=== PATIENT | female | born 1970 | race Caucasian/White ===

== ENCOUNTER 2018-01-21 21:41 | Emergency (ER) | payer BC ==
[2018-01-21] MEDS ORDERED: Zofran 4 MG/2 ML VIAL IV STA (21:56)
[2018-01-21] MEDS ORDERED: Sodium Chloride 0.9% 1000 ML 1,000 ML IV SCH (22:00)
[2018-01-21] MEDS ORDERED: Zofran 4 MG/2 ML VIAL ONE (22:02)
[2018-01-21] MEDS ORDERED: Sodium Chloride 0.9% 1000 ML 1,000 ML ONE (22:02)
--- NOTE | 2018-01-21 22:05 | ERPHSYRPT ---
- History of Present Illness Time Seen by Provider: 01/21/18 21:49 Source: patient Exam Limitations: no limitations Patient Subjective Stated Complaint: pt states she had wisdom teeth removed 6 days ago and has infection in her lt jaw. states she has had swelling and when using syringe to rinse, she heard a pop and foul fluid came out. states she has swelling, earache, and headache since Triage Nursing Assessment: pt alert and oriented, answers questions approp. pt alert and oriented. pt ambulatory with steady gait ntoed. respirations nonlabored with lungs cta. tenderness noted to lt jaw Physician History: Pt states, her left lower wisdom tooth was extracted 6 days ago. She was seen by her dentist twice since then, because of abscess in the socket, which was lavaged at the dentist office, and patient has been irrigating it as well. She states, she noticed foul tasting fluid leaking from the socket since yesterday, she was started on Clindamycin PO and also Z-arabella was given, but she did not star that one. She denies fever, severe headaches, vomiting, but nauseated, c/o pain, and swelling in her left jaw angle area, no trismus, she talks in sentences, no drooling or stridor, no muffled voice. Timing/Duration: gradual onset Severity: moderate ENT Location: mouth Prearrival Treatment: prescription meds Modifying Factors: Improves With: nothing Associated Symptoms: jaw pain Allergies/Adverse Reactions: penicillin Allergy (Verified 03/04/15 23:17) sulfamethoxazole [From Bactrim] Allergy (Verified 03/04/15 23:17) trimethoprim [From Bactrim] Allergy (Verified 03/04/15 23:17) Home Medications: Levothyroxine Sodium 75 Mcg [Synthroid 75 Mcg] 75 mcg PO DAILY 03/04/15 [ History] Hx Tetanus, Diphtheria Vaccination/Date Given: Yes Hx Influenza Vaccination/Date Given: No Hx Pneumococcal Vaccination/Date Given: No Immunizations Up to Date: Yes - Review of Systems Constitutional: No Symptoms Ears, Nose, & Throat: Mouth Pain All Other Systems: Reviewed and Negative - Past Medical History Pertinent Past Medical History: Yes Neurological History: No Pertinent History ENT History: No Pertinent History Cardiac History: No Pertinent History Respiratory History: No Pertinent History Endocrine Medical History: Hypothyroidism, Other Musculoskeletal History: No Pertinent History GI Medical History: Gallbladder Disease History: No Pertinent History Psycho-Social History: No Pertinent History Female Reproductive Disorders: Other - Past Surgical History Past Surgical History: Yes Neuro Surgical History: No Pertinent History Cardiac: No Pertinent History Respiratory: No Pertinent History Gastrointestinal: No Pertinent History Genitourinary: No Pertinent History Musculoskeletal: No Pertinent History Female Surgical History: Hysterectomy Other Surgical History: wisdom teeth removed - Social History Smoking Status: Current every day smoker How long have you smoked: 14 years Exposure to second hand smoke: No Drug Use: none Patient Lives Alone: No - Female History Hx Last Menstrual Period: 2 weeks Hx Now: No - Nursing Vital Signs Nursing Vital Signs: Initial Vital Signs Temperature 99.0 F 01/21/18 21:47 Pulse Rate 85 01/21/18 21:47 Respiratory Rate 18 01/21/18 21:47 Blood Pressure 142/77 01/21/18 21:47 O2 Sat by Pulse Oximetry 100 01/21/18 21:47 Pain Scale Pain Intensity 6 - Physical Exam General Appearance: no apparent distress Eye Exam: bilateral eye: normal inspection Ear Exam: bilateral ear: TM normal Nasal Exam: normal inspection Throat Exam: normal, pharynx normal, moist mucus membranes, No excessive drooling, No mandibular swelling (left mandibular angle tender, no swelling, or skin changes, no large gum lesion or bleeding noted, no mouth floor edema.), No maxillary swelling, No pharynx swelling, No tongue swollen, No tonsillar swelling, No trismus, No voice changes Neck Exam: normal inspection, non-tender, supple, trachea midline, No JVD, No lymphadenopathy (R), No lymphadenopathy (L) Cardiovascular/Respiratory Exam: chest non-tender, normal breath sounds, regular rate/rhythm, heart sounds normal, No no JVD Abdominal Exam: non-tender, soft Neurologic Exam: alert, oriented x 3, normal mood/affect Skin Exam: normal color, warm, dry, No rash SpO2 Interpretation: normal SpO2: 100 Oxygen Delivery: Room Air - Course Nursing assessment & vital signs reviewed: Yes - CT Exams Maxillofacial Bones CT Interpretation: Tele-radiologist Report, Other (St post recent left wisdom tooth extraction x2, the soft tissue density within the cavity of the mandible has mixed pockets of air, consistent with reported recently lanced abscess.) Ordered Tests: Active Orders 24 hr Category Date Time Status IV Insertion STAT Care 01/21/18 21:56 Active FACIAL BONES WO CONTRAST [CT] Stat Exams 01/21/18 21:58 Taken BLOOD CULTURE Stat Lab 01/21/18 22:15 Received CBC W DIFF Stat Lab 01/21/18 22:10 Completed CMP Stat Lab 01/21/18 22:10 Completed Lactic Acid Stat Lab 01/21/18 21:56 Completed Medication Summary Generic Name Dose Route Start Last Admin Trade Name Freq PRN Reason Stop Dose Admin Sodium Chloride 1,000 mls @ 100 mls/hr 01/21/18 22:00 01/21/18 22:05 Sodium Chloride 0.9% 1000 Ml IV 02/20/18 21:59 100 mls/hr .Q10H SUSANA Administration Discontinued Medications Generic Name Dose Route Start Last Admin Trade Name Freq PRN Reason Stop Dose Admin Vancomycin HCl 1 gm in 250 mls @ 167 mls/hr 01/21/18 22:08 01/21/18 22:37 Vancomycin 1gm/ Ns 250ml IV 01/21/18 23:37 167 mls/hr STAT ONE Administration Vancomycin HCl Confirm 01/21/18 22:22 Vancomycin 1gm/ Ns 250ml Administered 01/21/18 22:23 Dose 250 mls @ ud IV .STK-MED ONE Ondansetron HCl 4 mg 01/21/18 21:56 01/21/18 22:05 Zofran 4 Mg/2 Ml Vial IV 01/21/18 21:57 4 mg STAT STA Administration Ondansetron HCl Confirm 01/21/18 22:02 Zofran 4 Mg/2 Ml Vial Administered 01/21/18 22:03 Dose 4 mg .ROUTE .STK-MED ONE Lab/Rad Data: Laboratory Result Diagrams 01/21/18 22:10 01/21/18 22:10 Laboratory Results 01/21/18 01/21/18 01/21/18 Range/Units 22:10 22:10 21:56 WBC 8.5 (4.0-10.5) K/mm3 RBC 4.90 (4.1-5.4) M/mm3 Hgb 15.0 (12.0-16.0) gm/dl Hct 44.1 (35-47) % MCV 90.0 (78-100) fl MCH 30.6 (26-32) pg MCHC 34.0 (32-36) g/dl RDW 13.7 (11.5-14.0) % Plt Count 294 (150-450) K/mm3 MPV 9.7 H (6-9.5) fl Gran % 59.5 (36.0-66.0) % Eos # (Auto) 0.10 (0-0.5) Absolute Lymphs (auto) 2.53 (1.0-4.6) Absolute Monos (auto) 0.78 (0.0-1.3) Lymphocytes % 29.7 (24.0-44.0) % Monocytes % 9.2 (0.0-12.0) % Eosinophils % 1.2 (0.00-5.0) % Basophils % 0.4 (0.0-0.4) % Absolute Granulocytes 5.07 (1.4-6.9) Basophils # 0.03 (0-0.4) Sodium 140 (137-145) mmol/L Potassium 3.8 (3.5-5.1) mmol/L Chloride 103 (98-107) mmol/L Carbon Dioxide 29 (22-30) mmol/L Anion Gap 12.1 (5-15) MEQ/L BUN 15 (7-17) mg/dL Creatinine 1.09 H (0.52-1.04) mg/dL Estimated GFR 57.7 ML/MIN Glucose 108 H (74-106) mg/dL Lactic Acid 1.3 (0.4-2.0) Calcium 9.3 (8.4-10.2) mg/dL Total Bilirubin 0.30 (0.2-1.3) mg/dL AST 13 L (14-36) U/L ALT 12 (0-35) U/L Alkaline Phosphatase 84 (38-126) U/L Serum Total Protein 7.6 (6.3-8.2) g/dL Albumin 4.2 (3.5-5.0) g/dL - Progress Progress: improved Progress Note: 01/22/18 00:20 Pt was given iv Vancomycin, labs and CT report reviewed with her, encouraged to start taking Zithromax tomorrow as directed, and follow up with her dentist. She was advised to return if severe headaches, high fever> 102 F, vomiting. Counseled pt/family regarding: lab results, diagnosis, need for follow-up, rad results - Departure Time of Disposition: 00:22 Departure Disposition: Home Clinical Impression: Dental abscess Condition: Stable Critical Care Time: No Referrals: DOCTOR,NO FAMILY [Primary Care Provider] - Instructions: Dental Pain (DC) Additional Instructions: Follow up with dentist! Start taking Zithromax as directed tomorrow, return if severe headaches, vomiting, fever> 102 F!
[2018-01-21] MEDS ORDERED: Vancomycin 1GM/ Ns 250ML*** 1 GM/250 ML IVPB IV ONE (22:08)
[2018-01-21] MEDS ORDERED: Vancomycin 1GM/ Ns 250ML*** 250 ML IV ONE (22:22)
[2018-01-21 22:30] LABS: BASOPHIL % 0.4 % (0.0-0.4); Basophil (Absolute #) 0.03 (0-0.4); Eosinophil % 1.2 % (0.00-5.0); Granulocyte Absolute (ANC) 5.07 (1.4-6.9); Granulocytes % 59.5 % (36.0-66.0); Hematocrit 44.1 % (35-47); Lymphocyte (Absolute #) 2.53 (1.0-4.6); Lymphocytes % 29.7 % (24.0-44.0); Mean Corpuscular Hemoglobin 30.6 pg (26-32); Mean Platelet Volume 9.7 fl (6-9.5); Monocyte (Absolute #) 0.78 (0.0-1.3); Monocytes % 9.2 % (0.0-12.0); Platelet Count 294 K/mm3 (150-450); Red Cell Distribution Width 13.7 % (11.5-14.0); White Blood Count 8.5 K/mm3 (4.0-10.5)
[2018-01-21 22:42] LABS: ALBUMIN 4.2 g/dL (3.5-5.0); ANION GAP 12.1 MEQ/L (5-15); BILIRUBIN,TOTAL 0.3 mg/dL (0.2-1.3); Calcium 9.3 mg/dL (8.4-10.2); Creatinine 1 1.09 mg/dL (0.52-1.04); Potassium 3.8 mmol/L (3.5-5.1); Total Protein 7.6 g/dL (6.3-8.2)
[2018-01-22] MEDS ORDERED: NORCO 5/325 MG PO ONE (00:18)
[2018-01-22] MEDS ORDERED: NORCO 5/325 MG ONE (00:22)
[2018-01-22 00:23] VITALS: O2SAT 100
[2018-01-22 00:27] VITALS: BP 99/57; PULSE 78
--- NOTE | 2018-01-22 09:02 | XRAY ---
Indication: Pain. Status post left lower teeth extraction 5 days ago for abscess. Multiple contiguous axial images obtained through the facial bones without contrast. Sagittal and coronal reformatted images obtained. Comparison: None There are left maxilla and left mandible defects posteriorly insistent with recent teeth extraction with both soft tissue and air bubbles within the defects presumed postsurgical and related to reported abscesses. No acute fracture, suspicious bony lesions, or osseous destructive process. Scattered centimeter/subcentimeter submandibular and cervical lymph nodes bilaterally presumed reactive. A few right-sided dental amalgams. Remaining visualized noncontrasted soft tissues unremarkable. Moderate mucosal thickening seen of the floor of the left maxillary sinus. Impression: 1. Status post left upper and lower teeth extraction. Soft tissue/air bubbles in the defects presumed postsurgical and related to reported abscesses. No suspicious bony lesions are osseous destructive process. 2. Probable reactive submandibular and cervical lymph nodes. 3. Incidental left maxillary sinus disease. Comment: Preliminary interpretation was made by [facility]. No critical discrepancy. CTDI 59.47
== END 2018-01-22 00:32 | disposition home or self-care (01) ==
LOC: ED 21:41
DX: K04.7 Periapical abscess without sinus (principal); Z98.818 Other dental procedure status
CPT/HCPCS: 36000; 36415; 70486; 80053; 83605; 85025; 87040; 96360; 96361; 96365; 96366; 96374; 99284; J2405; J3370; A9270-GY